=== PATIENT | male | born 1970 | race Hispanic/Latino ===

== ENCOUNTER 2020-12-28 09:48 | Emergency (ER) | payer SELFPAY ==
--- OUTSIDE RECORDS SUMMARY | 2020-12-28 09:51 | XMS REPORT | Continuity of Care Document ---
:1970 Author Organization [facility] t Address [address] [place] [address] Care Team Providers Name Role Phone GALINA COBURN M.D. Attending Clinician Unavailable YOU WATERS Attending Clinician Unavailable YOU WATERS Admitting Clinician Unavailable Payers Payer Name Policy Type Policy Number Effective Date Expiration Date S ource Problems Condition Condition Condition Status Onset Resolution Last Treating Co mments Source Name Details Category Date Date Treatment Clinician Date Hypertensi Hypertensi Problem Active U nivers on on [facility] [place] [facility] Strain of Strain of Problem Active Uni vers right knee right knee it [facility] [place] [facility] Knee pain, Knee pain, Problem Active U nivers right right [facility] [place] [facility] Chondrocal 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 [place] of [place] knee [place] [facility] Acute pain Acute pain Problem Active U nivers of left of left ity of knee knee [place] [facility] Primary Primary Problem Active Univers localized localized ity of osteoarth[place]oarth[place] of Physici right knee right knee an s Effusion Effusion Problem Active Unive rs of left of left ity of knee knee [place] [facility] Primary Primary Problem Active Univers localized localized [place]y [place] osteoarth[place]oarth[place] of Physici left knee left knee ans Status Status Problem Active Univers post total post total it y of [place] [facility] Ph ysici t t ans Allergies, Adverse Reactions, Alerts Allergy Allergy Status Severity Reaction(s) Onset Inactive Treating Comm ents Source Name Type Date Date Clinician No Known DA Active U [facility] Allergie 3-30 Clear s 00:00: Santos 00 [facility] Social History Smoking Status Start Date Stop Date Source Never smoked tobacco (finding) U [facility] Physicians Medications Ordered Filled Start Stop Current Ordering Indication Dosage Frequency Signature Comments Components Source Medication Medication Date Date Medication? Clinician (SIG) Name Name traMADol traMADol Yes GALINA COBURN take 1-2 Univers HCl - 50 MG HCl - 50 MG 6-19 M.D. tablets by ity of Oral Tablet Oral Tablet 00:00: mouth [place] 00 every 6 Physici hours prn ans traMADol traMADol 2020-0 Yes GALINA COBURN TAKE 1 - 2 Univers HCl - 50 MG HCl - 50 MG 5-28 M.D. TABLETs ity of Oral Tablet Oral Tablet 00:00: EVERY 6 TO [place] 00 8 HOURS Physici NEEDED FOR ans PAIN. HYDROcodone HYDROcodone 0 Yes GALINA COBURN take 1-2 Univers -Acetaminop -Acetaminop 5-18 M.D. tablets ity of hen 10-325 hen 10-325 00:00: every 6 [place] MG Oral MG Oral 00 hour prn Physi ci Tablet Tablet pain ans traMADol traMADol 0 Yes GALINA COBURN take 1-2 Univers HCl - 50 MG HCl - 50 MG 5-15 M.D. tablets by ity of Oral Tablet Oral Tablet 00:00: mouth [place] 00 every 6 Physici hours prn ans HYDROcodone HYDROcodone 2020-0 Yes GALINA COBURN take 1-2 Univers -Acetaminop -Acetaminop 5-11 M.D. tablets ity of hen 10-325 hen 10-325 00:00: every 6 [place] MG Oral MG Oral 00 hour prn Physi ci Tablet Tablet pain ans traMADol traMADol 2020-0 Yes GALINA COBURN TAKE 1 Univers HCl - 50 MG HCl - 50 MG 4-08 M.D. TABLET ity of Oral Tablet Oral Tablet 00:00: EVERY 4 TO [place] 00 6 HOURS Physici NEEDED FOR ans PAIN. traMADol traMADol 2020-0 Yes GALINA ALMAS take 1-2 Univers HCl - 50 MG HCl - 50 MG 3-19 M.D. tablets by ity of Oral Tablet Oral Tablet 00:00: mouth 00 every 6 Physici hours prn ans Gabapentin Gabapentin Yes GALINA ALMAS 1 tabet Univers 300 MG Oral 300 MG Oral 1-21 M.D. TID daily ity of Capsule Capsule 00:00: [place] Physici ans Meloxicam Meloxicam 2019- Yes GALINA ALMAS 1 tablet Univers 15 MG Oral 15 MG Oral 1-21 M.D. bid daily ity of Tablet Tablet 00:00: [place] Physici ans HYDROcodone HYDROcodone Yes GALINA ALMAS TAKE 1-2 Univers -Acetaminop -Acetaminop 1-03 M.D. TABLETS A ity of hen 10-325 hen 10-325 00:00: DAY PRN [place] MG Oral MG Oral 00 Physici Tablet Tablet ans HYDROcodone HYDROcodone 2018-05 Yes GALINA ALMAS 1-2 Q 6 HR Univers -Acetaminop -Acetaminop 2-23 M.D. PRN PAIN ity of hen 10-325 hen 10-325 00:00: [place] MG Oral MG Oral 00 Physici Tablet Tablet ans HYDROcodone HYDROcodone 2018-05 Yes GALINA GARCIAUM 1-2 Q 6 HR Univers -Acetaminop -Acetaminop 2-11 M.D. PRN PAIN ity of hen 10-325 hen 10-325 00:00: [place] MG Oral MG Oral 00 Physici Tablet Tablet ans traMADol traMADol 2018-05 Yes GALINA GARCIAUM TAKE 1 TO Univers HCl - 50 MG HCl - 50 MG 2-06 M.D. 2 TABLETS ity of Oral Tablet Oral Tablet 00:00: EVERY 6 [place] 00 HOURS Physici NEEDED FOR ans PAIN. traMADol traMADol Yes GALINA ALMAS take 1-2 Univers HCl - 50 MG HCl - 50 MG 9-07 M.D. tablets by ity of Oral Tablet Oral Tablet 00:00: mouth 00 every 6 Physici hours prn ans HYDROcodone HYDROcodone Yes GALINA ALMAS TAKE 1 Univers -Acetaminop -Acetaminop 9-07 M.D. TABLET PO ity of hen 10-325 hen 10-325 00:00: QHS PRN [place] MG Oral MG Oral 00 Physici Tablet Tablet ans traMADol traMADol Yes GALINA COBURN Take 1-2 Univers HCl - 50 MG HCl - 50 MG 8-21 M.D. tablets ity of Oral Tablet Oral Tablet 00:00: every 6 [place] 00 hours PRN Physici Pain ans traMADol traMADol Yes GALINA COBURN Take 1-2 Univers HCl - 50 MG HCl - 50 MG 7-19 M.D. tablets ity of Oral Tablet Oral Tablet 00:00: every 6 [place] 00 hours PRN Physici Pain ans traMADol traMADol Yes GALINA COBURN Take 1-2 Univers HCl - 50 MG HCl - 50 MG 6-21 M.D. tablets ity of Oral Tablet Oral Tablet 00:00: every 6 [place] 00 hours PRN Physici Pain ans traMADol traMADol Yes GALINA COBURN Take 1-2 Univers HCl - 50 MG HCl - 50 MG 5-25 M.D. tablets ity of Oral Tablet Oral Tablet 00:00: every 6 [place] 00 hours PRN Physici Pain ans HYDROcodone HYDROcodone Yes GALINA COBURN take 1-2 Univers -Acetaminop -Acetaminop 4-27 M.D. tablets ity of hen 10-325 hen 10-325 00:00: every 6 [place] MG Oral MG Oral 00 hour prn Physi ci Tablet Tablet pain ans traMADol traMADol Yes GALINA COBURN Take 1-2 Univers HCl - 50 MG HCl - 50 MG 2-16 M.D. tablets ity of Oral Tablet Oral Tablet 00:00: every 6 [place] 00 hours PRN Physici Pain ans traMADol traMADol Yes GALINA COBURN take 1-2 Univers HCl - 50 MG HCl - 50 MG 2-02 M.D. tablets by ity of Oral Tablet Oral Tablet 00:00: mouth [place] 00 every 6 Physici hours prn ans Aleve 220 Aleve 220 Yes Unive rs MG Oral MG Oral ity of Tablet Tablet [place] [facility] ans Vital Signs Vital Name Observation Time Observation Value Comments Source BP Systolic 2017-12-07 09:41:00 135 mm[Hg] [facility]icians BP Diastolic 2017-12-07 09:41:00 84 mm[Hg] [facility] Height 2017-12-07 09:41:00 66 [in_us] [facility] Weight 2017-12-07 09:41:00 250 [lb_av] [facility] [place] [facility] Body Mass Index 2017-12-07 09:41:00 40.35 kg/m2 [facility] Calculated Physicians Heart Rate 2017-12-07 09:41:00 112 /min [facility] [place] [facility] BP Systolic 2017-09-15 16:03:00 120 mm[Hg] [facility] [place] [facility] BP Diastolic 2017-09-15 16:03:00 78 mm[Hg] [facility] [place] [facility] Height 2017-09-15 16:03:00 66 [in_us] [facility] [place] [facility] Weight 2017-09-15 16:03:00 250 [lb_av] [facility] [place] [facility] Body Mass Index 2017-09-15 16:03:00 40.35 kg/m2 [facility] [place] [facility] Calculated Physicians Heart Rate 2017-09-15 16:03:00 106 /min [facility] [place] [facility] BP Systolic 2017-08-30 14:30:00 134 mm[Hg] [facility] [place] [facility] BP Diastolic 2017-08-30 14:30:00 94 mm[Hg] [facility] [place] [facility] Height 2017-08-30 14:30:00 66 [in_us] [facility] [place] [facility] Weight 2017-08-30 14:30:00 250 [lb_av] [facility] [place] [facility] Body Mass Index 2017-08-30 14:30:00 40.35 kg/m2 [facility]ive [facility] [place] [facility] Calculated Physicians Heart Rate 2017-08-30 14:30:00 101 /min [facility] [place] [facility] BP Systolic 2017-04-28 09:48:00 128 mm[Hg] [facility] [place] [facility] BP Diastolic 2017-04-28 09:48:00 83 mm[Hg] [facility] [place] [facility] Height 2017-04-28 09:48:00 66 [in_us] [facility] [place] [facility] Weight 2017-04-28 09:48:00 250 [lb_av] [facility] [place] [facility] Body Mass Index 2017-04-28 09:48:00 40.35 kg/m2 [facility]ive [facility] [place] [facility] Calculated Physicians Heart Rate 2017-04-28 09:48:00 99 /min [facility] [place] [facility] Procedures Procedure Date / Time Performing Clinician Source Performed [U] XRAY KNEE 3 VWS 2019-10-17 00:00:00 Universi ty [facility] LEFT [id number] Physicians [U] XRAY KNEE 3 VWS 2019-10-16 00:00:00 [facility] [place] LEFT [address] Knee without 2019-07-26 00:00:00 [facility] [place] contrast [address] Knee without 2019-07-17 00:00:00 [facility] [place] contrast 16862 Physicians [U] XRAY KNEE 4 OR MORE 2019-04-25 00:00:00 [facility] VW LEFT [id number] Physicians MR Knee wo contrast 2019-04-25 00:00:00 Universi ty [facility] [address] Knee without 2018-02-09 00:00:00 [facility] [place] contrast 57386 Physicians [U] XRAY KNEE 3 S 2017-08-22 [facility]:00[facility] RIGHT [id number] Physicians MR Knee wo contrast 2017-08-22 00:00:00 [facility] [id number] Physicians History of Knee University [facility] xas replacement partial Physicians Encounters Start End Encounter Admission Attending Care Care Encounter Source Date/Time Date/Time Type Type Clinicians Facility Department ID 2019-09-27 Outpatient [facility] [id number] 14:05:01 [facility] 2019-12-26 2019-12-26 Appointmen ESEQUIEL COBURN Orthopedics [id number] Univers 10:15:00 10:15:00 t; [facility] 2019-11-28 2019-11-28 Appointmen ESEQUIEL COBURN Orthopedics [id number] Univers 10:15:00 10:15:00 t; [facility] 2019-10-17 2019-10-17 Appointmen ESEQUIEL COBURN Orthoped[facility] [id number] Univers 10:00:00 10:00:00 t; [facility] 2019-10-02 2019-10-02 Appointmen ESEQUIEL COBURN Orthopedics [id number] Univers 07:00:00 07:00:00 t; GALINA COBURN M.D. at [facility] Jus MOJICA M.D. Orthopedic Physi ci and Spine [facility] 2019-09-30 2019-09-30 AppointESEQUIEL Broussard Orthopedics [id number] Univers 09:30:00 09:30:00 t; GALINA COBURN M.D. at [facility] Jus MOJICA M.D. Orthopedic Physi ci and Spine [facility] 2019-08-07 2019-08-07 Emergency E MHBL MHBL [id number] MHBL 23:23:00 23:23:00 2019-08-04 2019-08-04 Emergency E [facility]BL [facility]BL [id number] MHBL 18:02:00 18:02:00 2019-08-02 2019-08-02 Outpatient [facility] [id number] 12:03:00 12:03:00 [facility] 2019-08-02 2019-08-02 Outpatient [facility] [id number] 10:08:00 10:08:00 [facility] 2019-05-28 2019-05-28 AppointESEQUIEL Broussard Orthopedics [id number] Univers 13:30:00 13:30:00 t; [facility] 2019-04-25 2019-04-25 ESEQUIEL Waite [facility] [id number] Univers 10:00:00 10:00:00 t; [facility] 2019-03-27 2019-03-27 Emergency E MHFB MHFB [id number] MHFB 10:59:00 10:59:00 2018-01-26 2018-01-26 AppointESEQUIEL Broussard [facility] [id number] Univers 14:15:00 14:15:00 t; GALINA COBURN M.D. Ortho and itsaurav Michael MOJICA [facility] Paramjit [facility] [place] [facility] 2017-12-07 2017-12-07 ESEQUIEL Waite [facility] [id number] Univers 09:30:00 09:30:00 t; GALINA COBURN M.D. Ortho and ity of Michael [facility] [place] [facility] 2017-10-13 2017-10-13 Appointmen ALMAS, ESEQUIEL [facility] [id number] Univers 14:00:00 14:00:00 t; GALINA COBURN M.D. Ortho and ity [facility] [place], [facility] [place] [facility] 2017-09-15 2017-09-15 Appointmen ESEQUIEL COBURN [facility] [id number] Univers 09:45:00 09:45:00 t; GALINA COBURN M.D. Ortho and ity of [place], Spine [facility] Medical [facility]ici [place] 2017-08-22 2017-08-22 AppointESEQUIEL Broussard [facility] [id number] Univers 13:30:00 13:30:00 t; GALINA COBURN M.D. Ortho and ity of [place], Spine [facility] [place] 2017-07-27 2017-07-27 AppointESEQUIEL Broussard [facility] [id number] Univers 10:30:00 10:30:00 t; GALINA COUBRN [facility]. [facility] [place] [facility] 2017-04-27 2017-04-27 Outpatient P KELLIE CORNELIUS, [facility] [id number] 22:05:00 22:05:00 [facility] 2017-04-21 2017-04-21 AppointESEQUIEL Broussard [facility] [id number] Univers 14:30:00 14:30:00 t; GALINA COBURN M.D. Ortho [facility]y [facility] [place], [facility] [place] 2017-02-21 2017-02-21 Appointroney COBURN, ESEQUIEL [facility] [id number] Univers 13:15:00 13:15:00 t; GALINA COBURN M.D. i ty of [facility].D. Physici ans 2017-01-26 2017-01-26 AppointESEQUIEL Broussard [facility] [id number] Univers 09:15:00 09:15:00 t; GALINA COBURN M.D. i ty of [facility].D. Physici ans Results Test Test Test Results Result Source Description Time Comments Comments [U] XRAY KNEE 3 2019-09 Images acquired, not [facility] LEFT [id number] -28 reported on this accession [place] 10:49:0 number. Physicians 0 MR Knee wo 2019-04 PROCEDURE INFORMATION:Exam: University of contrast [id number] -12 MR Left Lower Extremity [place] 15:39:0 Joint Without Contrast, P hysicians 0 KneeExam date and time: 05/02/2019 4:12 PMAge: 48 years oldClinical history: Pain in left knee; Additional info: M25.562 pain in leftknee/m25.562 pain in left knee. Left knee pain for 1 month.TECHNIQUE:Imaging protocol: MR of the Left lower extremity joint without contrast. Examfocused on the knee.COMPARISON:No relevant prior studies available.FINDINGS:BONES/KWAME NTS/CARTILAGE:Patellofemoral compartment: Small knee joint effusion is present with mildsynovial thickening and debris. 3 mm loose body in the posterior joint may bepresent. The Irregular areas full-thickness cartilage loss with moderatesubchondral cysts/edema seen of the medial and lateral patella as well as apex.Similar subchondral cysts are seen in the medial and lateral femoral trochlea.Old osteochondral injury of the medial femoral trochlea measuring 1 cm may bepresent. Moderate edema of suprapatellar Hoffa's fat is seen appearing greatestlaterally. Similar edema of the infrapatellar Hoffa's fat appearing greatestlaterally.Femorotibi al compartments: Mild tricompartmental degenerative spurring is seen.No contusion, acute fracture, dislocation, or osteonecrosis. Cartilagefissuring in the weight-bearing medial femoral condyle is seen extendinggreater than 50% thickness.Extensor mechanism: Intact.Medial meniscus: Mildly irregular predominantly radial tear is seen in the bodyof the medial meniscus near the posterior horn.Lateral meniscus: Intact.Medial capsule/supporting structures: Mild thickening and intermediate signalof the proximal medial collateral ligament is seen. No tear identified.Lateral capsule/supporting structures: Intact.Anterior cruciate ligament: Intact.Posterior cruciate ligament: Mild intermediate signal in the posterior cruciateligament is present without tear.Soft tissues: No additional finding.IMPRESSION:1. Radial tear of the medial meniscus.2. Mild chronic sprain of posterior cruciate ligament. No tear.3. Findings consistent with a grade 2 MCL sprain. No tear.4. Suprapatellar and infrapatellar Hoffa's fat edema appearing greatestlaterally which may suggest patellar tendon-lateral femoral condyle frictionsyndrome.5. 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 Oldosteochondral lesion of the medial femoral trochlea may be present.6. Small joint effusion with synovitis, debris, and possible tiny loose body.Parth Gutierrez MD On 05/02/2019 17:34:57; [id number]--Naqi by: Parth Gutierrez MDDictated Date/time: 05/02/19 17:35Electronically Signed by: Parth Gutierrez MD 05/02/1917:35FINAL REPORT [U] XRAY KNEE 4 2019-04 Images acquired, not [facility] [place] MORE VWS -05 reported on this accession [facility] [id number] 10:51:0 number. Physicians 0 DRUGS OF ABUSE SCREEN UR 2018-08-18 01:48:00 Test Item Value Reference Range Interpretation Comme nts URN COCAINE (test code = COCAURN) NEGATIVE NEGATIVE URN CANNABINOIDS (test code = NEGATIVE NEGATIVE CANNABURN) URN AMPHETAMINE (test code = NEGATIVE NEGATIVE AMPHETURN) URN BARBITURATE (test code = NEGATIVE NEGATIVE BARBITURN) URN BENZODIAZEPINE (test code = NEGATIVE NEGATIVE Cut-off value:200 ng/mL BENZOURN) URN OPIATES (test code = NEGATIVE NEGATIVE Cut -off value:2000 ng/mL OPIATURN) URN PHENCYCLIDINE (PCP) (test NEGATIVE NEGATIVE Cutoffs:Barbiturates code = PHENCURN) 200 ng/mLB enzodiazepines 200 ng/mLTHC Cannabinoids 50 ng/mLO piates(Morphine) 2000 ng/m LAmphetamine 1000 ng /mLCocaine 300 ng/mLPCP phencyclidine 25 ng/mL Unconfirmed scr eening results shouldnot be us ed for non-medical pur poses. - CT C-SPINE W/O [id number] 01:07:00 Name: NITHIN MONTANO [facility] : 1970 Age/S: 48 / M [address] [place] [address] Unit #: [id number] Loc: MELANY [place]rese[address] Phys: Silva Briseno MD Acct: [id number] Dis Date: Status: REG ER PHONE #: [phone] Exam Date: 08/18/2018 0022 FAX #: [phone] Reason: NECK PAIN EXAMS: CPTCODE: [id number] CT C-SPINE W/O CONT 97458 EXAM: CT, CT HEAD/BRAIN W/O CONTRAST: 08/18/2018 Clinical Indication: Positive LOC. Fall from standing. Headache Comparison: None. TECHNIQUE: CT images were obtained from the foramen magnum to the vertex without the use of intravenous contrast on a multidetector CT. CT imaging was performed with exposure control parameters to reduce radiation dose. Coronal and sagittal reconstructions were obtained. CT radiation dose DLP: 486.08 mGy-cm FINDINGS: Beam hardening artifact limits the optimal evaluation of base of brain and posterior fossa. BRAIN PARENCHYMA: The brain parenchyma is normal with normal shannon and white interfaces. The periventricular white matter appears unremarkable. No focal mass lesions on this noncontrast head CT. No mass effect, midline shift or edema.There are no intra-axial or extra-axial fluid collections, intraventricular or intraparenchymal hemorrhage. No low attenuation demarcating areas on this non-contrast CT to suggest subacute stroke. VENTRICLES: The lateral ventricles, third and fourth ventricles appear unremarkable. The basilar cisterns are normal. ORBITS, MASTOIDS AND PARANASAL SINU SES: The visualized orbits are unremarkable. The visualized paranasal sinuses are unremarkable. The mastoid air cells are clear. SKULL: There are no osseous abnormalities. If there is further concern for intracranial pathology or acute stroke, MRIof the brain may be performed for complete assessment. IMPRESSION: 1. No acute intracranial abnormality. No noncontrast CT evidence of mass, hemorrhage or subacute stroke. PAGE 1 Signed Report (CONTINUED) Name: NITHIN MONTANO [facility] : 1970 Age/S: 48 / M [address] [place] [address] Unit #: [id number] Loc: [place] [address] Phys: Silva Briseno MD Acct: [id number] Dis Date: Status: REG ER PHONE #: [phone] Exam Date: 08/18/201821 FAX #: [phone] Reason: NECK PAIN EXAMS: CPT CODE: [id number] CT C-SPINE W/O CONT 24396 <Continued> SL: JSYED-H EXAM: CT, CT C-SPINEW/O CONTRAST: 08/18/2018 Clinical Indication: Fall.. Headache. Positive LOC. Comparison: None Technique: Multi- detector CT imaging of the cervical spine is performed. Coronal and sagittal reconstructions were obtained. CT imaging was performed with exposure control parameters to reduce radiation dose. CT Radiation Dose DLP 307.76 mGy-cm FINDINGS: ALIGNMENT AND GENERAL ASSESSMENT: There is reversal of the cervical lordosis, most likely due to muscle spasm.. There are no fractures or subluxations. The craniocervical junction is normal. The atlanto-dental alignment appears unremarkable. The facet joint, spinolaminar and spinous process alignment are normal. A small calcific density abutting the posterior end of the T1 posterior spinous process may represent fracture, age undetermined. There is no associated soft tissueswelling. DISK SPACES AND SOFT TISSUES: The prevertebral soft tissues arenormal. C2-C3 to C7-T1 disc space levels show no definite disc protrusions on CT. There isno central or foraminal stenosis. MRI is the gold standard to assess for disk disease. VISUALIZED LUNG APICES: Unremarkable. Calcified nodules in the thyroid glands bilaterally. CT myelogram or MRI of the cervical spine may be performed, if there is further concern. IMPRESSION: PAGE 2 Signed Report (CONTINUED) Name: NITHIN MONTANO [facility] : 1970 Age/S: 48 / M [address] [place] [address] Unit #: [id number] Loc: [place] [address] Phys: Silva Briseno MD Acct: [id number] Dis Date: Status: REG ER PHONE #: [phone] Exam Date: 08/18/201821 FAX #: [phone] Reason: NECK PAIN EXAMS: CPT CODE: [id number] CT C-SPINE W/O CONT 43502 <Continued> 1. A well-corticated calcification abutting the posterior end of the T1 posterior spinous process may represent fracture, age undetermined, probably old or nonunited ossification center. There is no appreciable surrounding soft tissue swelling. Correlation with focal tenderness and if indicated, MRI can be considered for complete evaluation. 2. No acute fracture or dislocation of the cervical spine seen. 3. Reversal of cervical lordosis, most likely due to muscle spasm SL: JSYED-H at 0107 Reported and signed by: Lucien Haji M.D. CC: Silva Briseno MD Technologist:Zohaib RobbRT(R) CTDI: DLP: Trnscb Date/Time: 08/18/2018 (010) [email or web address] Orig Print D/T: S: 08/18/2018 (0110) CTDI: DLP: PAGE 3 Signed Report- CT HEAD/BRAIN W/O [id number] 01:07:00 Name: NITHIN MONTANO [facility] : 1970 Age/S: 48 / M [address] [place] [address] Unit #: [id number] Loc: MELANY [place]77598 Phys: Silva Briseno MD Acct: [id number] Dis Date: Status: REG ER PHONE #: [phone] Exam Date: 08/18/2018 0022 FAX #: [phone] Reason: HEADACHE EXAMS: CPTCODE: [id number] CT HEAD/BRAIN W/O CONT 07823 EXAM: CT, CT HEAD/BRAIN W/O CONTRAST: 08/18/2018 Clinical Indication: Positive LOC. Fall from standing. Headache Comparison: None. TECHNIQUE: CT images were obtained from the foramen magnum to the vertex without the use of intravenous contrast on a multidetector CT. CT imaging was performed with exposure control parameters to reduce radiation dose. Coronal and sagittal reconstructions were obtained. CT radiation dose DLP: 486.08 mGy-cm FINDINGS: Beam hardening artifact limits the optimal evaluation of base of brain and posterior fossa. BRAIN PARENCHYMA: The brain parenchyma is normal with normal shannon and white interfaces. The periventricular white matter appears unremarkable. No focal mass lesions on this noncontrast head CT. No mass effect, midline shift or edema.There are no intra-axial or extra-axial fluid collections, intraventricular or intraparenchymal hemorrhage. No low attenuation demarcating areas on this non-contrast CT to suggest subacute stroke. VENTRICLES: The lateral ventricles, third and fourth ventricles appear unremarkable. The basilar cisterns are normal. ORBITS, MASTOIDS AND PARANASAL SINU SES: The visualized orbits are unremarkable. The visualized paranasal sinuses are unremarkable. The mastoid air cells are clear. SKULL: There are no osseous abnormalities. If there is further concern for intracranial pathology or acute stroke, MRIof the brain may be performed for complete assessment. IMPRESSION: 1. No acute intracranial abnormality. No noncontrast CT evidence of mass, hemorrhage or subacute stroke. PAGE 1 Signed Report (CONTINUED) Name: NITHIN MONTANO [facility] : 1970 Age/S: 48 / M [address] [place] [address] Blvd Unit #: [id number] Loc: [place] [address] Phys: Silva Briseno MD Acct: [id number] Dis Date: Status: REG ER PHONE #: [phone] Exam Date: 08/18/2018 0022 FAX #: [phone] Reason: HEADACHE EXAMS: CPT CODE: [id number] CT HEAD/BRAIN W/O CONT 92117 <Continued> SL: JSYED-H EXAM: CT, CT C-SPINEW/O CONTRAST: 08/18/2018 Clinical Indication: Fall.. Headache. Positive LOC. Comparison: None Technique: Multi- detector CT imaging of the cervical spine is performed. Coronal and sagittal reconstructions were obtained. CT imaging was performed with exposure control parameters to reduce radiation dose. CT Radiation Dose DLP 307.76 mGy-cm FINDINGS: ALIGNMENT AND GENERAL ASSESSMENT: There is reversal of the cervical lordosis, most likely due to muscle spasm.. There are no fractures or subluxations. The craniocervical junction is normal. The atlanto-dental alignment appears unremarkable. The facet joint, spinolaminar and spinous process alignment are normal. A small calcific density abutting the posterior end of the T1 posterior spinous process may represent fracture, age undetermined. There is no associated soft tissueswelling. DISK SPACES AND SOFT TISSUES: The prevertebral soft tissues arenormal. C2-C3 to C7-T1 disc space levels show no definite disc protrusions on CT. There isno central or foraminal stenosis. MRI is the gold standard to assess for disk disease. VISUALIZED LUNG APICES: Unremarkable. Calcified nodules in the thyroid glands bilaterally. CT myelogram or MRI of the cervical spine may be performed, if there is further concern. IMPRESSION: PAGE 2 Signed Report (CONTINUED) Name: NITHIN MONTANO [facility] [place] : 1970 Age/S: 48 / M [address] [place] [address] Unit #: [id number] Loc: [place] [address] Phys: Silva Briseno MD Acct: [id number] Dis Date: Status: REG ER PHONE #: [phone] Exam Date: 08/18/2018 0022 FAX #: [phone] Reason: HEADACHE EXAMS: CPT CODE: [id number] CT HEAD/BRAIN W/O CONT 29425 <Continued> 1. A well-corticated calcification abutting the posterior end of the T1 posterior spinous process may represent fracture, age undetermined, probably old or nonunited ossification center. There is no appreciable surrounding soft tissue swelling. Correlation with focal tenderness and if indicated, MRI can be considered for complete evaluation. 2. No acute fracture or dislocation of the cervical spine seen. 3. Reversal of cervical lordosis, most likely due to muscle spasm SL: SMITHH at 0107 Reported and signed by: Lucien Haji M.D. CC: Silva Briseno MD Technologist:RT Sourav(R) CTDI: DLP: Trnscb Date/Time: 08/18/2018 (0107) [email or web address] Orig Print D/T: S: 08/18/2018 (0110) CTDI: DLP: PAGE 3 Signed Report- XR PELVIS 05/23 [id number] 00:50:00 FAX: Silva Grewal MD [phone] [place]: St: REG Name: REYNA MONTANOGloria Krishnamurthy [facility] : 1970 Age/S: 48/M [address] [place] [address] Unit#: [id number] Loc: [place] [address] Phys: Silva Briseno MD Acct: [id number] Dis Date: Status: REG ER PHONE #: [phone] Exam Date: 08/18/2018 0023 FAX #: [phone] Reason: PELVIC PAIN EXAMS: CPT CODE: [id number] XR PELVIS 1/2 VIEWS 71004 EXAM: CR, XR PELVIS 1/2 view: 08/18/2018, 0011 hours HISTORY: Pelvic pain. Status post fall. COMPARISON: None available. FINDINGS: AP view of the pelvis is submitted Areas of sacrum, coccyx and iliac bone are obscured by air and fecal material within the bowel loops. The osseous alignment is satisfactory. Femoral heads are within acetabular cup. Sacroiliac joint and pubic symphysis are intact.. There are no acute fracture, dislocation or lytic bony lesion. No radiopaque foreign body seen. IMPRESSION: 1. No acute fracture seen SL: [PHU-H] at 0050 Reported and signed by: Lucien Haji M.D. CC: Silva Briseno MD Technologist: Broderick Messina, RT(R); Nelson Lucero RT(R) Trnscrd Date/Time/By: 08/18/2018 (005) : By: [email or web address] Orig Print D/T: S: 08/18/2018 (005) PAGE 1 Signed ReportPROTHROMBIN [id number] 00:47:00 Test Item Value Reference Range Interpretation Comments PROTHROMBIN TIME 12.1 SECONDS 9.3-12.9 N PATIENT (test code = PTP) INTERNATIONAL NORMAL 1.1 0.8-1.2 N TARGET RATIO (test code = INR BY IN DICATION INR) Indication INR1. Prophyl axis of venous thrombos is 2.0 - 3. 0 (orthopedic nicola zack), Prophylaxis of venous thrombos is (other than hig h-risk surgery), Billie tment of Deep Vein Thrombosis/Pulm onary Embolism, Preve ntion of systemic emb olism - Tissue heart va lves, Acute Myocardia l Infarction (to prevent systemic embo lism), Valvular heart disease, Atri al Fibrillation, Bileaflet mecha nical valve in aortic position.2. Mec hanical prosthetic valv es (high risk), 2.5 - 3.5 Presence of Lupus Anticoagu lant or Antiphospholi pid Antibodies, Pre vention of systemic e mbolism - Acute Myocard ial Infarction (t o prevent recurre nt infarct). THROMBOPLASTIN TIME [id number] 00:47:00 Test Item Value Reference Range Interpretation Comments THROMBOPLASTIN TIME 32.5 Seconds 25.0-39.5 N Ther apeutic PARTIAL (test code = Range: 61.8-83.8 PTT) Sec Effective 06/19/2013 - XR CHEST 1 [id number] 00:45:00 FAX: Silva Grewal MD [phone] [place]: St: REG Name: NITHIN MONTANO Yessy [facility] : 1970 Age/S: 48/M [address] [place] [address] Unit#: [id number] Loc: [place] [address] Phys: Silva Briseno MD Acct: [id number] Dis Date: Status: REG ER PHONE #: [phone] Exam Date: 08/18/2018 0023 FAX #: [phone] Reason: CHEST PAIN EXAMS: CPT CODE: [id number] XR CHEST 1 V 19425 EXAM: CR, XR chest one view: 08/18/2018, 0011 hours HISTORY: CHEST PAIN TECHNIQUE: 1 view of the chest. COMPARISON: None available. FINDINGS: Trachea is midline. Heart is normal in size. Pulmonary vascularity is unremarkable. Suboptimal inspiratory effort with mild atelectasis in the lung bases. Mildly elevated right hemidiaphragm. There is no airspace consolidation, pleural effusion or pneumothorax. No significant osseous abnormalities are seen. IMPRESSION: Mild bibasilar atelectasis. SL: [JSYED-H] at 0045 Reported and signed by: Lucien Haji M.D. CC: Silva Briseno MD Technologist: Broderick Messina, RT(R); Nelson Lucero RT(R) Trnscrd Date/Time/By: 08/18/2018 (0045) : By: [email or web address] Orig Print D/T: S: 08/18/2018 (0048) PAGE 1 Signed Report HEPATIC FUNCTION [id number] 00:41:00 Test Item Value Reference Range Interpretation Comments TOTAL PROTEIN (test code = PROT) 7.2 g/dL 6.4-8.2 N ALBUMIN (test code = ALB) 3.90 g/dL 3.4-5.0 N BILIRUBIN TOTAL (test code = 0.50 mg/dL 0.0-1.0 N BILT) BILIRUBIN DIRECT (test code = 0.10 MG/DL 0.0-0.30 N BILD) BILIRUBIN INDIRECT (test code = 0.40 MG/DL BILIND) SGOT/AST (test code = AST) 29 IUnit/L 15-37 N SGPT/ALT (test code = ALT) 59 IUnit/L 15-65 N ALKALINE PHOSPHATASE TOTAL (test 107 IUnit/L 20-125 N code = ALKP) [id number] 00:41:00 Test Item Value Reference Range Interpretation Comments ALCOHOL (test code < 0.003 G/dL <0.003 Ethyl Alc ohol = ALC) Interpretation: 0.100 gm/dL - Legally Intoxic ated 0.300-0.40 0 gm/dL - Severely Into xicated >0.400 gm/dL - Potentially LethalResults a re for Medical purpose s only, and not for Leg al orEmployment ev aluation purposes. CBC W/AUTO [id number] 00:37:00 Test Item Value Reference Range Interpretation Comments WHITE BLOOD CELL (test code = 7.14 x10 3/uL 4.5-11.0 N WBC) RED BLOOD CELL (test code = 5.05 x10 6/uL 4.00-5.60 N RBC) HEMOGLOBIN (test code = HGB) 14.4 g/dL 12.5-16.9 N HEMATOCRIT (test code = HCT) 42.4 % 37.5-50.7 N MEAN CELL VOLUME (test code = 84.0 fL 81.0-99.0 N MCV) MEAN CELL HGB (test code = MCH) 28.5 pg 27.0-33.0 N MEAN CELL HGB CONCETRATION 34.0 g/dL 33.0-37.0 N (test code = MCHC) RED CELL DISTRIBUTION WIDTH CV 12.8 % 11.5-14.5 N (test code = RDW) RED CELL DISTRIBUTION WIDTH SD 38.9 fL 37.0-54.0 N (test code = RDW-SD) PLATELET COUNT (test code = 226 x10 3/uL 150-400 N PLT) MEAN PLATELET VOLUME (test code 9.0 fL 7.0-9.0 N = MPV) NEUTROPHIL % (test code = NT%) 60.3 % 56.0-77.0 N IMMATURE GRANULOCYTE % (test 0.6 % 0.0-2.0 N code = IG%) LYMPHOCYTE % (test code = LY%) 29.8 % 14.0-32.0 N MONOCYTE % (test code = MO%) 9.2 % 4.8-9.0 H EOSINOPHIL % (test code = EO%) 0.0 % 0.3-3.7 L BASOPHIL % (test code = BA%) 0.1 % 0.0-2.0 N NUCLEATED RBC % (test code = 0.0 % 0-0 N NRBC%) NEUTROPHIL # (test code = NT#) 4.30 x10 3/uL 2.0-7.6 N IMMATURE GRANULOCYTE # (test 0.04 x10 3/uL 0.00-0.03 H code = IG#) LYMPHOCYTE # (test code = LY#) 2.13 x10 3/uL 1.0-3.8 N MONOCYTE # (test code = MO#) 0.66 x10 3/uL 0.1-0.8 N EOSINOPHIL # (test code = EO#) 0.00 x10 3/uL 0.0-0.2 N BASOPHIL # (test code = BA#) 0.01 x10 3/uL 0.0-0.2 N NUCLEATED RBC # (test code = 0.00 x10 3/uL 0.0-0.1 N NRBC#) MANUAL DIFF REQUIRED (test code NO = MDIFF) CHEMISTRY 8 [id number] 00:22:00 Test Item Value Reference Range Interpretation Comments ISTAT-SODIUM (test code = NAP) MMOL/L 134-147 ISTAT-POTASSIUM (test code = KP) MMOL/L 3.4-5.0 ISTAT-CHLORIDE (test code = CLP) MMOL/L 100-108 ISTAT CARBON DIOXIDE (test code = mmol/L 21-33 N ISTAT-CO2) ISTAT CALCIUM IONIZED (test code = MG/DL 1.12-1.32 ISTAT-LANCE) ISTAT-GLUCOSE (test code = GLUP) MG/DL 70-110 H ISTAT-BUN (test code = BUNP) MG/DL 7-18 H BEDSIDE CREATININE (test code = MG/DL 0.6-1.3 N CREATBED) GLOMERULAR FILTRATION RATE POC 85 ML/MIN (test code = GFRBED) CHEMISTRY 8 [id number] 00:22:00 Test Item Value Reference Range Interpretation Comments ISTAT-SODIUM (test 138 MMOL/L 134-147 N code = NAP) ISTAT-POTASSIUM (test 3.4 MMOL/L 3.4-5.0 N code = KP) ISTAT-CHLORIDE (test 99 MMOL/L 100-108 L Perform ed by code = CLP) certified opera tor at [facility] ISTAT CARBON DIOXIDE 28.0 mmol/L 21-33 N (test code = ISTAT-CO2) ISTAT CALCIUM IONIZED 1.12 MG/DL 1.12-1.32 N (test code = ISTAT-LANCE) ISTAT-GLUCOSE (test 118 MG/DL 70-110 H code = GLUP) ISTAT-BUN (test code = 19 MG/DL 7-18 H BUNP) BEDSIDE CREATININE 1.0 MG/DL 0.6-1.3 N (test code = CREATBED) GLOMERULAR FILTRATION 85 ML/MIN RATE POC (test code = GFRBED) MR Knee wo contrast [id number] 19:22:00MRI OF RIGHT KNEE, 09/08/2017HISTORY: Right knee pain. Chondrocalcinosis. History of right medial jointcompartment hemiarthroplasty 5 years ago.TECHNIQUE: Multiplanar sequences through the knee were obtained.FINDINGS:MENISCI: The medial meniscus is for the most part obscured by metallic artifactfrom the medial joint compartment hemiarthroplasty. Extensive flap tear ofperipheral posterior horn of medial meniscus noted. Evaluation of the lateralmeniscus is also limited by metallic artifact. No conclusive evidence oflateral meniscus tear.CRUCIATE LIGAMENTS: The ACL and PCL are intact.COLLATERAL LIGAMENTS: The MCL and LCL are intact.OSSEOUS STRUCTURES: Mild increased signal within articular cartilagein thelateral joint compartment adjacent to the intercondylar notch is most likelyrelated to artifact from medial joint compartment prosthesis. The lateral jointcompartment cartilage is otherwise intact. Medial joint compartment prosthesisreplaces the articular cartilage in the medial joint compartment.SOFT TISSUES: Small knee joint effusion. No evidence of Chavez's cyst.Moderate synovitis. Chondroca lcinosis is not visible on this exam.PATELLOFEMORAL COMPARTMENT: High-grade cartilage loss involvingmedial patellarfacet extending to the apex with milder degree of fissuring involving lateralpatellarfacet with multiple subchondral cysts involving medial and lateralpatellar facets. No evidence of high-grade cartilage loss involving trochlearcartilage. Thickened patellar tendon, particularly the distal half extendingto the tibial attachment, with increased signal within it compatible withtendinosis. 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 (PSA) 2017-04-27 23:07:00 Test Item Value Reference Range Interpretation Comments PSA (test code = 1.12 ng/mL 0.000-3.890 N (NOTE)Prost ate Specific PSA) Antigen Test Information:The Total PSA method is appro herman for use as an aid in th e detection ofprostate canc er when used in conjunc tion with a digital rectal exam inmen age 50 and olde r. The total PSA metho d is also indicated for t heserial measurement of PSA to aid in the prognosi s and management ofpr ostate cancer patients .Elevated PSA concentrati ons can only suggest th e presence of prostatecanc er until biopsy is perfo rmed. PSA concentration c an also be elevatedin lelo gn prostatic hyper plasia or inflammatory co nditions of theprostate. PS A is generally not e levated in healthy men or men withnon-prostat ic carcinoma. Urinalysis [id number] 22:49:00 Test Item Value Reference Range Interpretation Comments Color (test code = COLOR) Yellow Yellow,Straw,Pl N yellow Clarity (test code = Clear Clear N CLAR) Specific Haines (test 1.016 1.001-1.035 N code = SPGR) pH (test code = PH) 5.0 5.0-9.0 N Ketone (test code = KET) Negative mg/dL Negative N Glucose (test code = Negative mg/dL Negative N GLUCUR) Protein (test code = Negative mg/dL Negative N PROT) Bilirubin (test code = Negative mg/dL Negative N BILI) Occult Blood (test code = Trace Negative A UDOB) Urobilinogen (test code = 0.2 mg/dL 0.2-1.0 N UROB) Nitrite (test code = NIT) Negative Negative N Leuk Esterase (test code Small Negative A = LEUK) Micros Exam (test code = Indicated MEXAM) Epithelial Cells (test 3-5 /LPF 0-30 A code = EPI) WBC, Urine (test code = 11-20 /HPF 0-5 A UWBC) RBC, Urine (test code = 0-3 /HPF 0-5 A URBC) Bacteria (test code = Many /HPF BACT) Lipid [id number] 22:48:00 Test Item Value Reference Range Interpretation Comments Cholesterol (test 188 mg/dL 0-200 N code = CHOL) Triglycerides (test 188 mg/dL 9-200 N code = TRIG) HDL (test code = 49 mg/dL 40-60 N HDL) Chol/HDL (test code 3.8 Ratio 0.0-5.0 N = CHOLPHDL) LDL, Calculated 101 mg/dL 0-130 N (NOTE)RISK O F HEART (test code = LDLC) DISEASEPu blished by [place] Heart AssociationAnal yte Optim al Boderline Increased RiskC HOL <200 200-239 >240TRI G <150 150-199 >200HDL Male: >60 <40HDL Female: >60 <50 LDL < 100 130-15 9 >160 LDL NEAR OPTIMAL IS 100- 129 VLDL (test code = 38 mg/dL 5-40 N VLDL) LDL/HDL (test code = 2 LDLPHDL) Lactate [id number] 22:48:00 Test Item Value Reference Range Interpretation Comments LDH (test code = LDH) 219 U/L 135-225 N [id number] 22:48:00 Test Item Value Reference Range Interpretation Comments GGT (test code = GGT) 119 U/L 8-61 H Uric [id number] 22:48:00 Test Item Value Reference Range Interpretation Comments Uric Acid (test code = UA) 6.6 mg/dL 3.4-7.0 N [id number] 22:48:00 Test Item Value Reference Range Interpretation Comments Phosphorus (test code = PO4) 3.4 mg/dL 2.70-4.50 N Comprehensive Metabolic [id number] 22:48:00 Test Item Value Reference Range Interpretation Comments Sodium (test code = 138 mmol/L 135-145 N NA) Potassium (test 4.4 mmol/L 3.5-5.1 N code = K) Chloride (test code 93 mmol/L 98-105 L = CL) Carbon Dioxide 34 mmol/L 22-29 H (test code = CO2) Glucose (test code 82 mg/dL 70-115 N = GLU) Blood Urea Nitrogen 22 mg/dL 6-20 H (test code = BUN) Creatinine (test 0.9 mg/dL 0.7-1.2 N code = CREAT) Calcium (test code 10.3 mg/dL 8.3-10.5 N = CA) Prot Total (test 7.4 g/dL 6.4-8.3 N code = TP) Albumin (test code 4.6 g/dL 3.5-5.2 N = ALB) A/G Ratio (test 1.6 Ratio code = AGRATIO) Globulin (test code 2.8 2.9-3.1 L = GLOB) Bili Total (test 0.5 mg/dL 0.1-0.9 N code = TBIL) Alk Phos (test code 80 U/L 40-129 N = APHOS) AST (test code = 46 U/L 1-40 H AST) ALT (test code = 81 U/L 1-41 H ALT) BUN/Creatinine 24.4 Ratio (test code = BCRATIO) Anion Gap (test 11 mmol/L 7-16 N code = AGAP) Estimated GFR (test >60 eGFR (es timated code = GFR) mL/min/1.73m2 Glomerular Jaylon tration Rate) is an est imated value,calculate d from the patient's s jacek creatinine usin g the MDRD equation.I t is NOT the patient 's actual GFR. The eGFR provides a more clinicallyusefu l measure of kidn ey disease than se rum creatinine alone.This calculation cristy es sex and race into account, if the informationis provided. If th e race is not provided , and the patient isAfrican-Ameri can, multiply by 1.2 12. If sex is not prov ided, and thepatient is female, multipl y by 0.742. Results for patients <18 ye ars ofage have not been validated by th e MDRD study and shoul d be interpretedwith caution.eGFR Re sult Interpretation: eGFR > or = 60 is in t he Normal RangeeGF R < 60 may mean kidney diseaseeGFR < 1 5 may mean kidney failureRange s recommended by the National Kidney Foundation,http ://nkd ep.nih.gov CBC with [id number] 22:32:00 Test Item Value Reference Range Interpretation Comments WBC (test code = WBC) 10.2 K/cumm 4.4-10.5 N RBC (test code = RBC) 4.92 M/cumm 4.10-5.70 N Hemoglobin (test code = HGB) 15.1 gm/dL 13.4-17.4 N Hematocrit (test code = HCT) 43.8 % 38.7-52.0 N MCV (test code = MCV) 88.9 fL 80-100 N MCH (test code = MCH) 30.7 pg 27.0-32.5 N MCHC (test code = MCHC) 34.5 g/dL 32.0-37.5 N RDW (test code = RDW) 13.4 % 11.5-14.5 N Platelet Count (test code = 275 K/cumm 140-440 N PLTCT) MPV (test code = MPV) 11.3 fL Diff Method (test code = DIFFM) Auto Neutrophil (test code = NEUT) 68.6 % 36-70 N Lymphocyte (test code = LYMPH) 25.4 % 12-44 N Monocyte (test code = MONO) 5.5 % 0-11 N Eosinophil (test code = EOS) 0.1 % 0-7 N Basophil (test code = BASO) 0.3 % 0-2 N Neutro Abs (test code = ANEUT) 7.0 K/cumm 1.6-7.4 N Lymph Abs (test code = ALYMPH) 2.6 K/cumm 0.5-4.6 N [place] Abs (test code = AMONO) 0.6 K/cumm 0.0-1.2 N Eos Abs (test code = AEOS) 0.01 K/cumm 0.00-0.74 N Baso Abs (test code = ABASO) 0.0 K/cumm 0.00-0.21 N Tobacco Use [id number] 15:15:00 Test Item Value Reference Range Interpretation Comments Completed (test code = Completed) DONE [facility]
[2020-12-28 10:25] LABS: Absolute Lymphocytes (CBC) 0.9 K/uL (0.7-4.9); Basophils % 0.2 % (0-1.3); Hematocrit 42.3 % (39.6-49.0); Lymphocytes % 13.1 % (15.3-44.8); MPV 6.5 fL (7.6-11.3); RBC Red Blood Cell Count 5.04 M/uL (4.33-5.43)
[2020-12-28 11:15] LABS: BUN Blood Urea Nitrogen 17 mg/dL (7-18); Bicarbonate 26 mmol/L (21-32); Glucose Level 114 mg/dL (74-106); Sodium Level 137 mmol/L (136-145); Troponin (Emerg Dept Use Only) < 0.02 ng/mL (0.0-0.045)
[2020-12-28 11:16] LABS: NT PRO-BNP < 5 pg/mL (<125); Potassium 3.4 mmol/L (3.5-5.1)
--- NOTE | 2020-12-28 11:52 | RAD REPORT ---
EXAM DESCRIPTION: CT - Chest For Pe Angio - 12/28/2020 11:18 am CLINICAL HISTORY: Chest pain COMPARISON: None. TECHNIQUE: Dynamically enhanced axial 3 mm thick images of the chest were obtained during administra tion of <100> mL Isovue 370 IV contrast. Coronal and oblique reconstruction images were generated and reviewed. Exam utilizes a protocol for optimal evaluation of pulmonary arterial tree. Maximum intensity projections 3D imaging was utilized All CT scans are performed using dose optimization technique as appropriate and may include automated exposure control or mA/KV adjustment according to patient size. FINDINGS: The opacification of the pulmonary arteries is suboptimal. No gross pulmonary embolus seen. A thoracic aortic aneurysm is not noted. A pleural effusion is not seen. A pericardial effusion is not seen. A lung consolidation is not present. Elevation right hemidiaphragm IMPRESSION: No gross pulmonary embolus is seen. Opacification of pulmonary arteries is suboptimal
--- NOTE | 2020-12-28 11:53 | RAD REPORT ---
EXAM DESCRIPTION: Dorothy Single View12/28/2020 10:38 am CLINICAL HISTORY: Chest pain COMPARISON: none FINDINGS: Mild elevation of the right hemidiaphragm The lungs appear clear of acute infiltrate. The heart is normal size
--- NOTE | 2020-12-28 12:05 | ER ---
Nurse's Notes [facility] Name: Kar Thomas Age: 50 yrs Sex: Male : 1970 Arrival Date: 12/28/2020 Time: 09:49 Bed 12 Private MD: Diagnosis: Chest pain, unspecified Presentation: 12/28 10:19 Chief complaint: EMS states: chest pain lasted about one minute, HR elevated. iw Coronavirus screen: At this time, the client does not indicate any symptoms associated with coronavirus-19. 10:19 Method Of Arrival: EMS iw 10:19 Acuity: DAWIN 3 iw - Family history:: not pertinent. - Hospitalizations: : No recent hospitalization is reported. Vital Signs: 10:42 BP 118 / 68; Pulse 107; Resp 24; Temp 98.6(O); Pulse Ox 97% on R/A; Weight 111.13 kg; 5 Height 5 ft. 6 in. (167.64 cm); Pain 3/10; 10:42 Body Mass Index 39.54 (111.13 kg, 167.64 cm) [facility] ED Course: 09:49 Patient arrived in ED. rn 09:49 Clement Jaffe MD is Attending Physician. rn 10:12 Shoshana Maciel RN is Primary Nurse. iw 10:19 Triage completed. iw 10:38 XRAY Chest (1 view) In Process Unspecified. EDMS 10:45 Patient has correct armband on for positive identification. Bed in low position. Call 5 light in reach. Side rails up X2. Warm blanket given. monitor tech on. Pulse ox on. NIBP on. 10:45 Initial lab(s) drawn, by ED staff, sent to lab. EKG done, by ED staff, reviewed by [facility] Clement Jaffe MD. Maintain EMS IV. Dressing intact. Site clean \T\ dry. 10:47 Basic Metabolic Panel Sent. [facility] 10:47 CBC with Diff Sent. [facility] 10:47 NT PRO-BNP Sent. [facility] 10:48 Troponin (emerg Dept Use Only) Sent. [facility] 10:48 Basic Metabolic Panel Sent. [facility] 11:18 CT Chest For PE Angio In Process Unspecified. EDMS Administered Medications: No medications were administered Outcome: 12:04 Discharge ordered by . rn 13:54 Patient left the ED. iw Signatures: Dispatcher [employer] Shoshana Sanchez, Clement Tamayo RN, MD MD rn Martinez, Maria [id number]
--- NOTE | 2020-12-28 12:06 | EDPHYS ---
Physician Documentation [facility] Name: Kar Thomas Age: 50 yrs Sex: Male : 1970 Arrival Date: 12/28/2020 Time: 09:49 Bed 12 Private MD: ED Physician Clement Jaffe HPI: 12/28 09:49 This 50 yrs old Male presents to ER via Unassigned with complaints of Chest rn pain. 09:49 The patient or guardian reports chest pain that is located primarily in the anterior rn chest wall, left. Onset: just prior to arrival. The pain does not radiate. Associated signs and symptoms: Pertinent positives: dizziness, Pertinent negatives: abdominal pain, headache, lower extremity pain, lower extremity swelling, near syncope, palpitations, shortness of breath, syncope, vomiting. The chest pain is described as dull. Duration: The patient or guardian reports a single episode, that lasted 1 minute(s). Modifying factors: The symptoms are alleviated by nothing. the symptoms are aggravated by nothing. Severity of pain: At its worst the pain was moderate in the emergency department the pain has resolved. The patient has not experienced similar symptoms in the past. The patient has not recently seen a physician. 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 Lasted only 1 minute with complete resolution. Asymptomatic currently. Denies fever/shortness of breath. States had cough over the weekend but tested negative for Covid 3 times. No direct trauma. No abdominal pain. No vomiting or diarrhea. Given aspirin by EMS. No known cardiac history, positive for hypertension.. - Family history:: not pertinent. - Hospitalizations: : No recent hospitalization is reported. ROS: 09:49 Constitutional: Negative for fever, chills, and weight loss, Eyes: Negative for injury, rn pain, redness, and discharge, Neck: Negative for injury, pain, and swelling, Cardiovascular: Positive for chest pain, negative for palpitations or edema Respiratory: Negative for shortness of breath, cough, wheezing, and pleuritic chest pain, Abdomen/GI: Negative for abdominal pain, nausea, vomiting, diarrhea, and constipation, Back: Negative for injury and pain, : Negative for injury, bleeding, discharge, and swelling, MS/Extremity: Negative for injury and deformity, Skin: Negative for injury, rash, and discoloration, Neuro: Negative for headache, weakness, numbness, tingling, and seizure. 09:53 All other systems are negative. rn Exam: 09:53 Constitutional: This is a well developed, well nourished patient who is awake, alert, rn and in no acute distress. Head/Face: Normocephalic, atraumatic. Eyes: Periorbital areas with no swelling, redness, or edema. ENT: No stridor Cardiovascular: Tachycardic, regular. No pulse deficits. Respiratory: No increased work of breathing, no retractions or nasal flaring. Abdomen/GI: Soft, non-tender Skin: Warm, dry MS/ Extremity: Pulses equal, no cyanosis. Neurovascular intact. Full, normal range of motion. Equal circumference. Neuro: Awake and alert, GCS 15 10:26 ECG was reviewed by the Attending Physician. rn Vital Signs: 10:42 BP 118 / 68; Pulse 107; Resp 24; Temp 98.6(O); Pulse Ox 97% on R/A; Weight 111.13 kg; 5 Height 5 ft. 6 in. (167.64 cm); Pain 3/10; 10:42 Body Mass Index 39.54 (111.13 kg, 167.64 cm) [facility] MDM: 09:49 Patient medically screened. rn 10:34 Data interpreted: compliance monitor: rate is 109 beats/min, rhythm is sinus tachycardia, rn with no ectopy, Interpretation: tachycardia, Pulse oximetry: on room air is 97 %. Interpretation: normal. ED course: Patient with elevated D-dimer. CT chest to rule out pulmonary embolism ordered. 12:03 Differential diagnosis: acute myocardial infarction, acute pericarditis, anxiety, rn coronary artery disease chest wall pain, costochondritis, pleurisy, pneumothorax, pulmonary embolus, stable angina. The patient was not given aspirin in the Emergency Department. Administered by EMS. Data reviewed: vital signs, nurses notes, lab test result(s), EKG, radiologic studies, CT scan, plain films, and as a result, I will discharge patient. Test interpretation: by ED physician or midlevel provider: ECG, plain radiologic studies, X-ray negative for pneumothorax or acute infiltrate. Counseling: I had a detailed discussion with the patient and/or guardian regarding: the historical points, exam findings, and any diagnostic results supporting the discharge/admit diagnosis, lab results, radiology results, the need for outpatient follow up, to return to the emergency department if symptoms worsen or persist or if there are any questions or concerns that arise at home. Medical screen evaluation completed. [facility] emergency medical condition absent. ED course: Patient asymptomatic heart rate down into the 90s, negative CT chest, negative troponin and no ischemia on ECG. Will DC home with rest, anti-inflammatories, and recommend cardiology follow-up.. 12/28 09:56 Order name: Basic Metabolic Panel rn 12/28 09:56 Order name: CBC with Diff rn 12/28 09:56 Order name: NT PRO-BNP; Complete Time: 11:42 rn 12/28 09:56 Order name: Troponin (emerg Dept Use Only); Complete Time: 11:42 rn 12/28 09:56 Order name: D-Dimer; Complete Time: 11:42 rn 12/28 09:56 Order name: Basic Metabolic Panel; Complete Time: 11:42 EDNE 12/28 09:56 Order name: XRAY Chest (1 view); Complete Time: 11:57 rn 12/28 09:56 Order name: EKG; Complete Time: 09:57 rn 12/28 09:56 Order name: Cardiac monitoring; Complete Time: 10:41 rn 12/28 09:56 Order name: EKG - Nurse/Tech; Complete Time: 10:41 rn 12/28 09:56 Order name: IV Saline Lock; Complete Time: 10:41 rn 12/28 09:56 Order name: CBC with Automated Diff; Complete Time: 11:42 EDNE 12/28 10:34 Order name: CT Chest For PE Angio; Complete Time: 11:57 rn 12/28 12:10 Order name: CREATININE WHOLE BLOOD EDNE 12/28 09:56 Order name: Labs collected and sent; Complete Time: 10:41 rn 12/28 09:56 Order name: O2 Per Protocol; Complete Time: 10:41 rn 12/28 09:56 Order name: O2 Sat Monitoring; Complete Time: 10:41 rn EC:26 Rate is 107 beats/min. Rhythm is regular. QRS is positive in lead aVF and negative in rn lead I. AR interval is normal. QRS interval is normal. QT interval is normal. No Q waves. T waves are Normal. No ST changes noted. Clinical impression: Sinus tachycardia. Interpreted by me. Reviewed by me. Administered Medications: No medications were administered Disposition Summary: 12/28/20 12:04 Discharge Ordered Location: Home rn Problem: new rn Symptoms: have improved rn Condition: Stable rn Diagnosis - Chest pain, unspecified rn Followup: rn - With: Private Physician - When: As needed - Reason: Recheck today's complaints, Re-evaluation by your physician Discharge Instructions: - Discharge Summary Sheet rn - Nonspecific Chest Pain, Adult rn Forms: - Medication Reconciliation Form rn - Thank You Letter rn - Antibiotic government gauger - Prescription Opioid Use rn Signatures: Dispatcher [employer] EDClement Sharpe MD MD photography intern: (The following items were deleted from the chart) 09:54 09:49 Constitutional: Negative for fever, chills, and weight loss, Eyes: Negative for rn injury, pain, redness, and discharge, Neck: Negative for injury, pain, and swelling, Cardiovascular: Positive for chest pain, negative for palpitations or edema rn
[2020-12-28 14:09] VITALS: BP 118/68; TEMP 98.6; O2SAT 97
== END 2020-12-28 13:54 | disposition home or self-care (01) ==
LOC: ER 09:48
DX: R07.89 Other chest pain (principal)
CPT/HCPCS: 36415; 71045; 71275; 80048; 82565; 83880; 84484; 85025; 85379; 93005; 99284; Q9967